=== PATIENT | male | born 1980 | race Caucasian/White ===

== ENCOUNTER 2020-10-09 01:42 | Inpatient (IN) | payer OTHER ==
[~2020-10-09 01:42] MED LIST: BACTRIM DS TAB1 EACH PO; CLINDAMYCIN 15150 MG PO; IBUPROFEN800 MG PO; LIDOCAINE 5% P1 EACH TOP; SEROQUEL 25MG T25 MG PO
[2020-10-09 02:16] LABS: BILIRUBIN 1+ mg/dL (NEGATIVE); BLOOD NEGATIVE Ery/uL (NEGATIVE); CLARITY CLEAR (CLEAR); COLOR YELLOW (YELLOW); GLUCOSE (U) NORMAL (NORMAL); LEUKOCYTES NEGATIVE Leu/uL (NEGATIVE); NITRITE NEGATIVE (NEGATIVE); PROTEIN 1+ mg/dL (NEGATIVE); SPECIFIC GRAVITY >=1.030 (1.001-1.030); UROBILINOGEN 0.2 mg/dL (0.2-1.0); pH 5.5 (5.0-9.0)
[2020-10-09 02:22] LABS: BARBITURATES NEGATIVE (NEGATIVE); ECSTASY (MDMA) POSITIVE (NEGATIVE); MARIJUANA (THC) NEGATIVE (NEGATIVE); METHADONE NEGATIVE (NEGATIVE); OPIATES NEGATIVE (NEGATIVE)
[2020-10-09 02:23] LABS: AMPHETAMINES POSITIVE (NEGATIVE); OXYCODONE NEGATIVE (NEGATIVE)
[2020-10-09 02:29] LABS: AMORPHOUS URATES CRYSTALS TRACE; BACTERIA 1+; MUCOUS TRACE; SPERM PRESENT; URINARY WBC RARE
[2020-10-09 02:54] LABS: BASOPHIL 0.7 % (0-2); EOSINOPHIL 0 % (0-5); HCT 43.8 % (42.0-52.0); HGB 14.6 g/dl (13.2-18.0); LYMPHOCYTE 3.7 % (15-48); MCH 31.6 pg (25.0-31.0); MCHC 33.3 g/dL (32.0-36.0); MCV 94.8 fL (78.0-100.0); MONOCYTE 5.6 % (0-12); MPV 8.5 fL (6.0-9.5); NEUTROPHIL 88.7 % (41-80); NRBC 0; PLT 342 K/uL (150-400); RBC 4.62 M/uL (4.70-6.00); RDW 12.9 % (11.5-14.0); WBC 15.3 K/uL (4.0-10.5)
[2020-10-09 03:07] LABS: ALBUMIN 4.2 g/dL (3.4-5.0); ALKALINE PHOSHATASE 122 U/L (46-116); ALT 30 U/L (16-63); AST 26 U/L (15-37); BILIRUBIN - TOTAL 0.5 mg/dL (0.2-1.0); BUN 24 mg/dL (7-18); BUN/CREAT RATIO (CALC) 19.4 RATIO; CHLORIDE 108 mmol/L (98-107); CO2 (BICARBONATE) 24 mmol/L (21-32); CREATININE 1.24 mg/dL (0.67-1.17); GLOBULIN (CALCULATION) 3.6 g/dL; GLUCOSE 106 mg/dL (74-106); POTASSIUM 3.3 mmol/L (3.5-5.1); TOTAL PROTEIN 7.8 g/dL (6.4-8.2)
[2020-10-09 03:19] LABS: CKMB 8.2 ng/mL (0.0-3.6)
[2020-10-09 03:46] LABS: CORONAVIRUS 2019 SARS-COV-2 NEGATIVE (NEGATIVE); INFLUENZA A NAA NEGATIVE (NEGATIVE)
[2020-10-10 05:48] LABS: BASOPHIL 0.6 % (0-2); EOSINOPHIL 0.2 % (0-5); HCT 37.2 % (42.0-52.0); HGB 12.1 g/dl (13.2-18.0); LYMPHOCYTE 31.3 % (15-48); MCH 31.8 pg (25.0-31.0); MCHC 32.5 g/dL (32.0-36.0); MCV 97.9 fL (78.0-100.0); MONOCYTE 9.9 % (0-12); MPV 8.5 fL (6.0-9.5); NEUTROPHIL 57.5 % (41-80); NRBC 0; PLT 281 K/uL (150-400); RDW 13.3 % (11.5-14.0); WBC 8.8 K/uL (4.0-10.5)
[2020-10-10 06:23] LABS: BUN/CREAT RATIO (CALC) 19.7 RATIO; CREATININE 0.66 mg/dL (0.67-1.17); POTASSIUM 3.5 mmol/L (3.5-5.1)
--- NOTE | 2020-10-10 15:44 | NUR ---
LIVES WITH MOM AND IS INDEPENDENDT WITH CARE. SOCIAL SERVICE FOLLOWING; PT DID NOT HAVE ANY DISCHARGE NEEDS
== END 2020-10-10 16:13 | disposition home or self-care (01) | DRG 917 ==
LOC: FER 01:42 → FMS 05:42
PROVIDERS: Student in an Organized Health Care Education/Training Program; ADMIT Hospitalist
DX: T43.621A Poisoning by amphetamines, accidental (unintentional), initial encounter (principal); J69.0 Pneumonitis due to inhalation of food and vomit; G93.41 Metabolic encephalopathy; N17.9 Acute kidney failure, unspecified; I10 Essential (primary) hypertension; F17.210 Nicotine dependence, cigarettes, uncomplicated; E86.0 Dehydration; Z20.822 Contact with and (suspected) exposure to COVID-19; Z88.0 Allergy status to penicillin
CPT/HCPCS: 36415; 70450; 71045; 71046; 80048; 80053; 80305; 81001; 82553; 83605; 83735; 84484; 85025; 87040; 87077; 87186; 93005; 94010; 94640; 94667; 94668; G0480; J0456; J0692; J1200; J1630; J1650; J2060; J2543; J2930; J3370; J7030; J7050; U0002

== ENCOUNTER 2020-12-21 01:19 | Emergency (ER) | payer OTHER ==
[2020-12-21 01:49] LABS: AMPHETAMINES POSITIVE (NEGATIVE); BARBITURATES NEGATIVE (NEGATIVE); ECSTASY (MDMA) POSITIVE (NEGATIVE); MARIJUANA (THC) NEGATIVE (NEGATIVE); METHADONE NEGATIVE (NEGATIVE); OPIATES NEGATIVE (NEGATIVE); OXYCODONE NEGATIVE (NEGATIVE)
[2020-12-21 01:50] LABS: BILIRUBIN NEGATIVE (NEGATIVE); BLOOD NEGATIVE Ery/uL (NEGATIVE); CLARITY CLEAR (CLEAR); COLOR YELLOW (YELLOW); GLUCOSE (U) NORMAL (NORMAL); LEUKOCYTES NEGATIVE Leu/uL (NEGATIVE); NITRITE NEGATIVE (NEGATIVE); PROTEIN NEGATIVE (NEGATIVE); UROBILINOGEN 0.2 mg/dL (0.2-1.0)
[2020-12-21 02:01] LABS: BASOPHIL 0.8 % (0-2); EOSINOPHIL 0 % (0-5); HCT 37.8 % (42.0-52.0); HGB 12.8 g/dl (13.2-18.0); LYMPHOCYTE 19.6 % (15-48); MCH 31.9 pg (25.0-31.0); MCHC 33.9 g/dL (32.0-36.0); MCV 94.3 fL (78.0-100.0); MONOCYTE 10.5 % (0-12); MPV 8.7 fL (6.0-9.5); NEUTROPHIL 68.6 % (41-80); NRBC 0; PLT 262 K/uL (150-400); RBC 4.01 M/uL (4.70-6.00); RDW 12.9 % (11.5-14.0); WBC 9.7 K/uL (4.0-10.5)
[2020-12-21 02:16] LABS: ALBUMIN 3.9 g/dL (3.4-5.0); BILIRUBIN - TOTAL 0.2 mg/dL (0.2-1.0); BUN/CREAT RATIO (CALC) 17.2 RATIO; CREATININE 0.64 mg/dL (0.67-1.17); GLOBULIN (CALCULATION) 3.2 g/dL; MAGNESIUM 1.5 mg/dL (1.8-2.4); POTASSIUM 3.7 mmol/L (3.5-5.1); TOTAL PROTEIN 7.1 g/dL (6.4-8.2)
== END 2020-12-21 09:05 | disposition home or self-care (01) ==
LOC: FER 01:19
PROVIDERS: Emergency Medicine
DX: F19.10 Other psychoactive substance abuse, uncomplicated (principal); F17.200 Nicotine dependence, unspecified, uncomplicated; Z88.0 Allergy status to penicillin; Z87.820 Personal history of traumatic brain injury; Z20.822 Contact with and (suspected) exposure to COVID-19
CPT/HCPCS: 36415; 80053; 80305; 81003; 83735; 85025; 93005; G0480; J3486; U0002

== ENCOUNTER 2020-12-23 00:32 | Emergency (ER) | payer OTHER | END 2020-12-23 01:03 | LOC: FER 00:32 | DX: F15.10 Other stimulant abuse, uncomplicated (principal); S00.83XA Contusion of other part of head, initial encounter; F17.200 Nicotine dependence, unspecified, uncomplicated; Z88.0 Allergy status to penicillin; X58.XXXA Exposure to other specified factors, initial encounter | CPT/HCPCS: 99284 ==

== ENCOUNTER 2020-12-26 23:26 | Emergency (ER) | payer OTHER ==
[2020-12-26 23:51] LABS: BASOPHIL 0.7 % (0-2); EOSINOPHIL 0.4 % (0-5); HCT 35.9 % (42.0-52.0); HGB 12.1 g/dl (13.2-18.0); LYMPHOCYTE 21.2 % (15-48); MCHC 33.7 g/dL (32.0-36.0); MONOCYTE 10.7 % (0-12); MPV 8.3 fL (6.0-9.5); NEUTROPHIL 66.3 % (41-80); NRBC 0; PLT 395 K/uL (150-400); RBC 3.78 M/uL (4.70-6.00); RDW 13.1 % (11.5-14.0); WBC 9.4 K/uL (4.0-10.5)
[2020-12-27] LABS: ALBUMIN 3.4 g/dL (3.4-5.0); ALKALINE PHOSHATASE 87 U/L (46-116); ALT 30 U/L (16-63); AST 22 U/L (15-37); BILIRUBIN - TOTAL 0.2 mg/dL (0.2-1.0); BUN 16 mg/dL (7-18); BUN/CREAT RATIO (CALC) 23.2 RATIO; CHLORIDE 101 mmol/L (98-107); CO2 (BICARBONATE) 26 mmol/L (21-32); CREATININE 0.69 mg/dL (0.67-1.17); GLOBULIN (CALCULATION) 3.4 g/dL; GLUCOSE 97 mg/dL (74-106); POTASSIUM 3.3 mmol/L (3.5-5.1); TOTAL PROTEIN 6.8 g/dL (6.4-8.2)
[2020-12-27 00:55] LABS: AMPHETAMINES POSITIVE (NEGATIVE); BARBITURATES NEGATIVE (NEGATIVE); ECSTASY (MDMA) NEGATIVE (NEGATIVE); MARIJUANA (THC) NEGATIVE (NEGATIVE); METHADONE NEGATIVE (NEGATIVE); OPIATES NEGATIVE (NEGATIVE); OXYCODONE NEGATIVE (NEGATIVE)
[2020-12-27 01:00] LABS: BILIRUBIN NEGATIVE (NEGATIVE); BLOOD NEGATIVE Ery/uL (NEGATIVE); CLARITY CLEAR (CLEAR); COLOR YELLOW (YELLOW); GLUCOSE (U) NORMAL (NORMAL); LEUKOCYTES NEGATIVE Leu/uL (NEGATIVE); NITRITE NEGATIVE (NEGATIVE); PROTEIN NEGATIVE (NEGATIVE); SPECIFIC GRAVITY 1.015 (1.001-1.030); pH 6.5 (5.0-9.0)
[2020-12-27] MEDS ORDERED: AMOXICILLIN500 MG PO (06:06)
[2020-12-27] MEDS ORDERED: CLEOCIN300 MG PO (06:11)
== END 2020-12-27 06:51 | disposition home or self-care (01) ==
LOC: FER 23:26
PROVIDERS: Emergency Medicine
DX: F10.129 Alcohol abuse with intoxication, unspecified (principal); K02.9 Dental caries, unspecified; F17.210 Nicotine dependence, cigarettes, uncomplicated; Y90.0 Blood alcohol level of less than 20 mg/100 ml
CPT/HCPCS: 36415; 80053; 80305; 81003; 85025; 99285; G0480

== ENCOUNTER 2021-01-05 02:07 | Emergency (ER) | payer OTHER ==
[~2021-01-05 02:07] MED LIST changes: +AMOXICILLIN500 MG PO; +CLEOCIN300 MG PO
[2021-01-05] MEDS ORDERED: CLEOCIN HCL300 MG PO (03:28)
[2021-01-05] MEDS ORDERED: NAPROSYN500 MG PO (03:28)
== END 2021-01-05 03:40 | disposition home or self-care (01) ==
LOC: FER 02:07
DX: K02.9 Dental caries, unspecified (principal)
CPT/HCPCS: 99283

== ENCOUNTER 2021-01-16 05:15 | Emergency (ER) | payer OTHER ==
[~2021-01-16 05:15] MED LIST changes: +CLEOCIN HCL300 MG PO; +NAPROSYN500 MG PO
[2021-01-16 05:34] LABS: BASOPHIL 1.5 % (0-2); EOSINOPHIL 0.8 % (0-5); HCT 37.1 % (42.0-52.0); HGB 12.4 g/dl (13.2-18.0); LYMPHOCYTE 29.2 % (15-48); MCH 32.4 pg (25.0-31.0); MCHC 33.4 g/dL (32.0-36.0); MCV 96.9 fL (78.0-100.0); MONOCYTE 9.9 % (0-12); MPV 8.5 fL (6.0-9.5); NEUTROPHIL 58.3 % (41-80); NRBC 0; PLT 308 K/uL (150-400); RBC 3.83 M/uL (4.70-6.00); RDW 14.3 % (11.5-14.0); WBC 6.6 K/uL (4.0-10.5)
[2021-01-16 06:06] LABS: ACETAMINOPHEN (TYLENOL) < 2.0 ug/mL (10.0-30.0); ALBUMIN 3.9 g/dL (3.4-5.0); ALKALINE PHOSHATASE 90 U/L (46-116); ALT 29 U/L (16-63); AST 20 U/L (15-37); BILIRUBIN - TOTAL 0.3 mg/dL (0.2-1.0); BUN 15 mg/dL (7-18); BUN/CREAT RATIO (CALC) 20.5 RATIO; CHLORIDE 105 mmol/L (98-107); CO2 (BICARBONATE) 28 mmol/L (21-32); CREATININE 0.73 mg/dL (0.67-1.17); GLUCOSE 95 mg/dL (74-106); POTASSIUM 3.3 mmol/L (3.5-5.1); TOTAL PROTEIN 6.9 g/dL (6.4-8.2)
[2021-01-16 07:53] LABS: BILIRUBIN NEGATIVE (NEGATIVE); BLOOD NEGATIVE Ery/uL (NEGATIVE); CLARITY HAZY (CLEAR); COLOR YELLOW (YELLOW); GLUCOSE (U) NORMAL (NORMAL); LEUKOCYTES NEGATIVE Leu/uL (NEGATIVE); NITRITE NEGATIVE (NEGATIVE); PROTEIN NEGATIVE (NEGATIVE); SPECIFIC GRAVITY 1.015 (1.001-1.030); UROBILINOGEN 0.2 mg/dL (0.2-1.0)
[2021-01-16 08:32] LABS: MARIJUANA (THC) NEGATIVE (NEGATIVE)
[2021-01-16 08:33] LABS: AMPHETAMINES POSITIVE (NEGATIVE); BARBITURATES NEGATIVE (NEGATIVE); ECSTASY (MDMA) NEGATIVE (NEGATIVE); METHADONE NEGATIVE (NEGATIVE); OPIATES NEGATIVE (NEGATIVE); OXYCODONE NEGATIVE (NEGATIVE)
== END 2021-01-16 11:05 | disposition home or self-care (01) ==
LOC: FER 05:15
PROVIDERS: Emergency Medicine Emergency Medical Services
DX: F19.122 Other psychoactive substance abuse with intoxication with perceptual disturbances (principal); I10 Essential (primary) hypertension; F17.200 Nicotine dependence, unspecified, uncomplicated; Z88.0 Allergy status to penicillin
CPT/HCPCS: 36415; 70450; 71045; 80053; 80305; 81003; 84439; 84443; 84484; 85025; 93005; G0480; J3411; J7030

== ENCOUNTER 2021-01-26 03:22 | Emergency (ER) | payer OTHER ==
[2021-01-26 03:47] LABS: BASOPHIL 1.1 % (0-2); EOSINOPHIL 0.2 % (0-5); HCT 38.1 % (42.0-52.0); HGB 12.8 g/dl (13.2-18.0); LYMPHOCYTE 12.2 % (15-48); MCH 32.9 pg (25.0-31.0); MCHC 33.6 g/dL (32.0-36.0); MCV 97.9 fL (78.0-100.0); MONOCYTE 9.2 % (0-12); MPV 8.2 fL (6.0-9.5); NRBC 0; PLT 311 K/uL (150-400); RBC 3.89 M/uL (4.70-6.00); RDW 14.4 % (11.5-14.0); WBC 9.3 K/uL (4.0-10.5)
[2021-01-26 04:05] LABS: BILIRUBIN - TOTAL 0.3 mg/dL (0.2-1.0); BUN/CREAT RATIO (CALC) 17.6 RATIO; CREATININE 1.02 mg/dL (0.67-1.17); GLOBULIN (CALCULATION) 3.6 g/dL; POTASSIUM 3.8 mmol/L (3.5-5.1); TOTAL PROTEIN 7.6 g/dL (6.4-8.2)
== END 2021-01-26 10:32 | disposition home or self-care (01) ==
LOC: FER 03:22
PROVIDERS: Emergency Medicine
DX: F19.10 Other psychoactive substance abuse, uncomplicated (principal); F17.200 Nicotine dependence, unspecified, uncomplicated; Z88.0 Allergy status to penicillin
CPT/HCPCS: 36415; 80053; 82550; 85025; 96372; G0480; J2060; J3486

== ENCOUNTER 2021-02-01 01:45 | Emergency (ER) | payer OTHER ==
[2021-02-01 03:00] LABS: BASOPHIL 1.8 % (0-2); EOSINOPHIL 0.1 % (0-5); HCT 39.5 % (42.0-52.0); HGB 13.4 g/dl (13.2-18.0); LYMPHOCYTE 20.2 % (15-48); MCH 32.5 pg (25.0-31.0); MCHC 33.9 g/dL (32.0-36.0); MCV 95.9 fL (78.0-100.0); MONOCYTE 10.7 % (0-12); MPV 8.5 fL (6.0-9.5); NEUTROPHIL 66.1 % (41-80); NRBC 0; PLT 325 K/uL (150-400); RBC 4.12 M/uL (4.70-6.00); WBC 9.1 K/uL (4.0-10.5)
[2021-02-01 03:08] LABS: ALBUMIN 4.2 g/dL (3.4-5.0); ALKALINE PHOSHATASE 94 U/L (46-116); ALT 36 U/L (16-63); AST 29 U/L (15-37); BILIRUBIN - TOTAL 0.2 mg/dL (0.2-1.0); BUN 14 mg/dL (7-18); BUN/CREAT RATIO (CALC) 17.1 RATIO; CHLORIDE 106 mmol/L (98-107); CO2 (BICARBONATE) 26 mmol/L (21-32); CREATININE 0.82 mg/dL (0.67-1.17); GLOBULIN (CALCULATION) 3.5 g/dL; GLUCOSE 94 mg/dL (74-106); TOTAL PROTEIN 7.7 g/dL (6.4-8.2)
[2021-02-01 06:15] LABS: BILIRUBIN NEGATIVE (NEGATIVE); BLOOD NEGATIVE Ery/uL (NEGATIVE); CLARITY CLEAR (CLEAR); COLOR YELLOW (YELLOW); GLUCOSE (U) NORMAL (NORMAL); LEUKOCYTES NEGATIVE Leu/uL (NEGATIVE); NITRITE NEGATIVE (NEGATIVE); PROTEIN NEGATIVE (NEGATIVE); pH 7.5 (5.0-9.0)
[2021-02-01 06:24] LABS: AMPHETAMINES NEGATIVE (NEGATIVE); BARBITURATES NEGATIVE (NEGATIVE); ECSTASY (MDMA) NEGATIVE (NEGATIVE); MARIJUANA (THC) NEGATIVE (NEGATIVE); METHADONE NEGATIVE (NEGATIVE); OPIATES NEGATIVE (NEGATIVE); OXYCODONE NEGATIVE (NEGATIVE)
[2021-02-02] MEDS ORDERED: CLINDAMYCIN 15150 MG PO (06:33)
== END 2021-02-01 08:05 | disposition home or self-care (01) ==
LOC: FER 01:45
PROVIDERS: Emergency Medicine
DX: F10.129 Alcohol abuse with intoxication, unspecified (principal); F15.129 Other stimulant abuse with intoxication, unspecified; K02.9 Dental caries, unspecified; Y90.0 Blood alcohol level of less than 20 mg/100 ml
CPT/HCPCS: 36415; 80053; 80305; 81003; 85025; 99285; G0480; J3410

== ENCOUNTER 2021-02-02 02:32 | Emergency (ER) | payer OTHER ==
[2021-02-02 04:23] LABS: BASOPHIL 1.4 % (0-2); EOSINOPHIL 0.4 % (0-5); HCT 40.7 % (42.0-52.0); HGB 13.9 g/dl (13.2-18.0); LYMPHOCYTE 21.3 % (15-48); MCH 32.7 pg (25.0-31.0); MCHC 34.2 g/dL (32.0-36.0); MCV 95.8 fL (78.0-100.0); MONOCYTE 13.1 % (0-12); MPV 8.6 fL (6.0-9.5); NEUTROPHIL 63.4 % (41-80); NRBC 0; PLT 318 K/uL (150-400); RBC 4.25 M/uL (4.70-6.00); RDW 13.8 % (11.5-14.0); WBC 10.9 K/uL (4.0-10.5)
[2021-02-02 04:32] LABS: BILIRUBIN NEGATIVE (NEGATIVE); BLOOD NEGATIVE Ery/uL (NEGATIVE); CLARITY CLEAR (CLEAR); COLOR YELLOW (YELLOW); GLUCOSE (U) NORMAL (NORMAL); LEUKOCYTES NEGATIVE Leu/uL (NEGATIVE); NITRITE NEGATIVE (NEGATIVE); PROTEIN TRACE (LOW) mg/dL (NEGATIVE); SPECIFIC GRAVITY 1.025 (1.001-1.030); pH 6.5 (5.0-9.0)
[2021-02-02 04:35] LABS: SQUAMOUS EPITHELIAL CELLS RARE; URINARY RBC RARE
[2021-02-02 04:36] LABS: AMPHETAMINES NEGATIVE (NEGATIVE); BARBITURATES NEGATIVE (NEGATIVE); ECSTASY (MDMA) NEGATIVE (NEGATIVE); MARIJUANA (THC) NEGATIVE (NEGATIVE); METHADONE NEGATIVE (NEGATIVE); OPIATES NEGATIVE (NEGATIVE); OXYCODONE NEGATIVE (NEGATIVE)
[2021-02-02 04:40] LABS: ALBUMIN 4.1 g/dL (3.4-5.0); BILIRUBIN - TOTAL 0.5 mg/dL (0.2-1.0); BUN/CREAT RATIO (CALC) 22.1 RATIO; CREATININE 0.86 mg/dL (0.67-1.17); GLOBULIN (CALCULATION) 3.6 g/dL; POTASSIUM 3.7 mmol/L (3.5-5.1); TOTAL PROTEIN 7.7 g/dL (6.4-8.2)
[2021-02-02 04:56] LABS: LACTIC ACID 0.9 mmol/L (0.4-1.9)
[2021-02-02] MEDS ORDERED: CLINDAMYCIN 15150 MG PO (06:33)
== END 2021-02-02 06:55 | disposition home or self-care (01) ==
LOC: FER 02:32
PROVIDERS: Emergency Medicine Emergency Medical Services
DX: F15.129 Other stimulant abuse with intoxication, unspecified (principal); K02.9 Dental caries, unspecified; K04.7 Periapical abscess without sinus; Z87.820 Personal history of traumatic brain injury; Z88.0 Allergy status to penicillin
CPT/HCPCS: 36415; 80053; 80305; 81001; 83605; 85025; 87040; G0480; J3411; J3475; J7030; Q0163

== ENCOUNTER 2021-02-03 06:45 | Emergency (ER) | payer OTHER | END 2021-02-03 07:05 | disposition home or self-care (01) | LOC: FER 06:45 | DX: K02.9 Dental caries, unspecified (principal); F17.200 Nicotine dependence, unspecified, uncomplicated | CPT/HCPCS: 99283 ==

== ENCOUNTER 2021-02-05 23:36 | Emergency (ER) | payer OTHER ==
[2021-02-06] MEDS ORDERED: KEFLEX250 MG PO (05:02)
== END 2021-02-06 05:15 | disposition home or self-care (01) ==
LOC: FER 23:36
DX: K02.9 Dental caries, unspecified (principal); F17.200 Nicotine dependence, unspecified, uncomplicated; Z88.0 Allergy status to penicillin
CPT/HCPCS: 99284

== ENCOUNTER 2021-02-08 02:29 | Emergency (ER) | payer OTHER ==
[~2021-02-08 02:29] MED LIST changes: +KEFLEX250 MG PO
[2021-02-08 03:38] LABS: BASOPHIL 1.6 % (0-2); EOSINOPHIL 1.6 % (0-5); HCT 37.4 % (42.0-52.0); HGB 12.7 g/dl (13.2-18.0); LYMPHOCYTE 31.7 % (15-48); MCH 32.8 pg (25.0-31.0); MCV 96.6 fL (78.0-100.0); MONOCYTE 9.9 % (0-12); MPV 8.4 fL (6.0-9.5); NRBC 0; PLT 304 K/uL (150-400); RBC 3.87 M/uL (4.70-6.00); RDW 13.5 % (11.5-14.0)
[2021-02-08 03:40] LABS: AMPHETAMINES POSITIVE (NEGATIVE); BARBITURATES NEGATIVE (NEGATIVE); BILIRUBIN NEGATIVE (NEGATIVE); BLOOD NEGATIVE Ery/uL (NEGATIVE); CLARITY CLEAR (CLEAR); COLOR YELLOW (YELLOW); ECSTASY (MDMA) NEGATIVE (NEGATIVE); GLUCOSE (U) NORMAL (NORMAL); LEUKOCYTES NEGATIVE Leu/uL (NEGATIVE); MARIJUANA (THC) NEGATIVE (NEGATIVE); METHADONE NEGATIVE (NEGATIVE); NITRITE NEGATIVE (NEGATIVE); OPIATES NEGATIVE (NEGATIVE); OXYCODONE NEGATIVE (NEGATIVE); PROTEIN NEGATIVE (NEGATIVE); UROBILINOGEN 0.2 mg/dL (0.2-1.0)
[2021-02-08 03:51] LABS: ALBUMIN 3.6 g/dL (3.4-5.0); ALKALINE PHOSHATASE 79 U/L (46-116); ALT 28 U/L (16-63); AST 18 U/L (15-37); BILIRUBIN - TOTAL 0.2 mg/dL (0.2-1.0); BUN 10 mg/dL (7-18); BUN/CREAT RATIO (CALC) 15.4 RATIO; CHLORIDE 107 mmol/L (98-107); CO2 (BICARBONATE) 26 mmol/L (21-32); CREATININE 0.65 mg/dL (0.67-1.17); GLOBULIN (CALCULATION) 3.2 g/dL; GLUCOSE 90 mg/dL (74-106); POTASSIUM 3.4 mmol/L (3.5-5.1); TOTAL PROTEIN 6.8 g/dL (6.4-8.2)
[2021-02-08] MEDS ORDERED: CLINDAMYCIN 15150 MG PO (06:34)
== END 2021-02-08 11:05 | disposition home or self-care (01) ==
LOC: FER 02:29
PROVIDERS: Emergency Medicine Emergency Medical Services
DX: F19.10 Other psychoactive substance abuse, uncomplicated (principal); K02.9 Dental caries, unspecified; I10 Essential (primary) hypertension; F17.200 Nicotine dependence, unspecified, uncomplicated; Z86.59 Personal history of other mental and behavioral disorders; Z87.820 Personal history of traumatic brain injury; Z88.0 Allergy status to penicillin
CPT/HCPCS: 36415; 80053; 80305; 81003; 85025; G0480; J1885; J7030

== ENCOUNTER 2021-02-11 23:10 | Emergency (ER) | payer OTHER ==
[2021-02-12] MEDS ORDERED: CLEOCIN HCL300 MG PO (00:21)
[2021-02-12] MEDS ORDERED: NORCO 5-325 TA1 EACH PO (00:22)
== END 2021-02-12 01:05 | disposition home or self-care (01) ==
LOC: FER 23:10
DX: K02.9 Dental caries, unspecified (principal); F17.210 Nicotine dependence, cigarettes, uncomplicated
CPT/HCPCS: 99282

== ENCOUNTER 2021-03-24 02:09 | Emergency (ER) | payer OTHER ==
[~2021-03-24 02:09] MED LIST changes: +NORCO 5-325 TA1 EACH PO
[2021-03-24 02:57] LABS: BASOPHIL 1.2 % (0-2); EOSINOPHIL 0 % (0-5); HCT 40.4 % (42.0-52.0); HGB 13.8 g/dl (13.2-18.0); MCH 33.2 pg (25.0-31.0); MCHC 34.2 g/dL (32.0-36.0); MCV 97.1 fL (78.0-100.0); MONOCYTE 6.8 % (0-12); MPV 8.5 fL (6.0-9.5); NRBC 0; PLT 289 K/uL (150-400); RBC 4.16 M/uL (4.70-6.00); RDW 13.5 % (11.5-14.0); WBC 9.5 K/uL (4.0-10.5)
[2021-03-24 03:02] LABS: NEUTROPHIL 61.7 % (41-80)
[2021-03-24 03:17] LABS: ALBUMIN 4.3 g/dL (3.4-5.0); BILIRUBIN - TOTAL 0.5 mg/dL (0.2-1.0); BUN/CREAT RATIO (CALC) 19.3 RATIO; CREATININE 1.09 mg/dL (0.67-1.17); GLOBULIN (CALCULATION) 3.8 g/dL; POTASSIUM 4.3 mmol/L (3.5-5.1); TOTAL PROTEIN 8.1 g/dL (6.4-8.2)
[2021-03-24 10:25] LABS: BILIRUBIN NEGATIVE (NEGATIVE); BLOOD NEGATIVE Ery/uL (NEGATIVE); CLARITY CLEAR (CLEAR); COLOR YELLOW (YELLOW); GLUCOSE (U) NORMAL (NORMAL); LEUKOCYTES NEGATIVE Leu/uL (NEGATIVE); NITRITE NEGATIVE (NEGATIVE); PROTEIN NEGATIVE (NEGATIVE); SPECIFIC GRAVITY 1.025 (1.001-1.030); UROBILINOGEN 0.2 mg/dL (0.2-1.0)
[2021-03-24 10:30] LABS: ECSTASY (MDMA) POSITIVE (NEGATIVE); MARIJUANA (THC) NEGATIVE (NEGATIVE)
[2021-03-24 10:31] LABS: AMPHETAMINES POSITIVE (NEGATIVE); BARBITURATES NEGATIVE (NEGATIVE); METHADONE NEGATIVE (NEGATIVE); OPIATES NEGATIVE (NEGATIVE); OXYCODONE NEGATIVE (NEGATIVE)
== END 2021-03-24 10:47 | disposition home or self-care (01) ==
LOC: FER 02:09
PROVIDERS: Emergency Medicine Emergency Medical Services
DX: F19.121 Other psychoactive substance abuse with intoxication delirium (principal); K02.9 Dental caries, unspecified; I10 Essential (primary) hypertension; F17.200 Nicotine dependence, unspecified, uncomplicated; Z88.0 Allergy status to penicillin; Z87.820 Personal history of traumatic brain injury
CPT/HCPCS: 36415; 70450; 80053; 80305; 81003; 82550; 84484; 85025; 96372; G0480; J1200; J2060; J3486; J7030

== ENCOUNTER 2021-04-27 02:05 | Emergency (ER) | payer OTHER | END 2021-04-27 07:56 | disposition home or self-care (01) | LOC: FER 02:05 | DX: F10.129 Alcohol abuse with intoxication, unspecified (principal); F17.200 Nicotine dependence, unspecified, uncomplicated; F19.90 Other psychoactive substance use, unspecified, uncomplicated ==

== ENCOUNTER 2021-05-14 01:41 | Day surgery (SDCO) | payer OTHER ==
[~2021-05-14] VITALS: Ht 177.8 cm; Wt 81.6 kg
[2021-05-14 03:16] LABS: BASOPHIL 0.7 % (0-2); EOSINOPHIL 0 % (0-5); HCT 39.9 % (42.0-52.0); HGB 13.6 g/dl (13.2-18.0); LYMPHOCYTE 4.5 % (15-48); MCH 32.4 pg (25.0-31.0); MCHC 34.1 g/dL (32.0-36.0); MONOCYTE 5.7 % (0-12); MPV 8.8 fL (6.0-9.5); NEUTROPHIL 87.6 % (41-80); NRBC 0; PLT 259 K/uL (150-400); RDW 12.5 % (11.5-14.0); WBC 16.3 K/uL (4.0-10.5)
[2021-05-14 03:29] LABS: BARBITURATES NEGATIVE (NEGATIVE); ECSTASY (MDMA) NEGATIVE (NEGATIVE); MARIJUANA (THC) POSITIVE (NEGATIVE); METHADONE NEGATIVE (NEGATIVE); OPIATES NEGATIVE (NEGATIVE)
[2021-05-14 03:30] LABS: AMPHETAMINES POSITIVE (NEGATIVE); OXYCODONE NEGATIVE (NEGATIVE)
[2021-05-14 03:46] LABS: ALBUMIN 4.3 g/dL (3.4-5.0); ALKALINE PHOSHATASE 85 U/L (46-116); ALT 39 U/L (16-63); AST 44 U/L (15-37); BILIRUBIN - TOTAL 0.9 mg/dL (0.2-1.0); BUN 21 mg/dL (7-18); BUN/CREAT RATIO (CALC) 17.8 RATIO; CHLORIDE 115 mmol/L (98-107); CO2 (BICARBONATE) 24 mmol/L (21-32); CPK 763 U/L (39-308); CREATININE 1.18 mg/dL (0.67-1.17); GLOBULIN (CALCULATION) 3.5 g/dL; GLUCOSE 72 mg/dL (74-106); LDH 390 U/L (85-227); MAGNESIUM 2.4 mg/dL (1.8-2.4); POTASSIUM 3.3 mmol/L (3.5-5.1); TOTAL PROTEIN 7.8 g/dL (6.4-8.2)
[2021-05-14 03:57] LABS: LACTIC ACID 1.7 mmol/L (0.4-1.9)
[2021-05-14 10:05] LABS: CREATININE 0.82 mg/dL (0.67-1.17); MAGNESIUM 2.9 mg/dL (1.8-2.4); POTASSIUM 3.2 mmol/L (3.5-5.1)
[2021-05-14 16:35] LABS: CREATININE 0.8 mg/dL (0.67-1.17); POTASSIUM 3.5 mmol/L (3.5-5.1)
[2021-05-15 14:37] LABS: BASOPHIL 0.9 % (0-2); HCT 42.6 % (42.0-52.0); LYMPHOCYTE 30.3 % (15-48); MCH 31.8 pg (25.0-31.0); MCHC 32.9 g/dL (32.0-36.0); MCV 96.8 fL (78.0-100.0); MONOCYTE 7.9 % (0-12); NEUTROPHIL 59.6 % (41-80); NRBC 0; PLT 236 K/uL (150-400); RDW 12.8 % (11.5-14.0); WBC 10.3 K/uL (4.0-10.5)
[2021-05-15 14:53] LABS: BUN/CREAT RATIO (CALC) 18.1 RATIO; CREATININE 0.83 mg/dL (0.67-1.17); POTASSIUM 3.8 mmol/L (3.5-5.1)
[2021-05-15 14:54] LABS: MAGNESIUM 2.1 mg/dL (1.8-2.4)
[2021-05-16 06:13] LABS: BASOPHIL 0.6 % (0-2); EOSINOPHIL 1.5 % (0-5); HCT 41.3 % (42.0-52.0); HGB 13.6 g/dl (13.2-18.0); LYMPHOCYTE 39.1 % (15-48); MCHC 32.9 g/dL (32.0-36.0); MCV 97.2 fL (78.0-100.0); MONOCYTE 9.6 % (0-12); MPV 9.2 fL (6.0-9.5); NEUTROPHIL 48.8 % (41-80); NRBC 0; PLT 235 K/uL (150-400); RBC 4.25 M/uL (4.70-6.00); RDW 12.8 % (11.5-14.0); WBC 8.5 K/uL (4.0-10.5)
[2021-05-16 06:45] LABS: BUN/CREAT RATIO (CALC) 14.1 RATIO; CREATININE 0.64 mg/dL (0.67-1.17); POTASSIUM 3.6 mmol/L (3.5-5.1)
[2021-05-17 09:09] LABS: HBSAG SCREEN Negative (Negative); HEP A AB, IGM Negative (Negative); HEP B CORE AB, IGM Negative (Negative); HEP C VIRUS AB <0.1 (0.0-0.9)
== END 2021-05-16 15:21 | disposition home or self-care (01) ==
LOC: FER 01:41 → FMS 11:13
PROVIDERS: Emergency Medicine; Family Medicine; Internal Medicine; ADMIT Allergy & Immunology Allergy
DX: G92 Toxic encephalopathy (principal); E87.0 Hyperosmolality and hypernatremia; Z88.0 Allergy status to penicillin; I10 Essential (primary) hypertension; Z96.641 Presence of right artificial hip joint; F17.210 Nicotine dependence, cigarettes, uncomplicated; T43.625A Adverse effect of amphetamines, initial encounter; F15.10 Other stimulant abuse, uncomplicated; Z20.822 Contact with and (suspected) exposure to COVID-19
CPT/HCPCS: 36415; 70450; 71045; 80048; 80053; 80074; 80305; 82550; 82728; 83605; 83615; 83735; 84145; 84443; 85025; 96372; 97161; G0378; G0480; J0696; J2060; J3411; J3480; J3486; J7030; J7060; J7070; U0002

== ENCOUNTER 2021-05-18 22:52 | Emergency (ER) | payer OTHER | END 2021-05-19 06:38 | disposition home or self-care (01) | LOC: FER 22:52 | DX: R41.82 Altered mental status, unspecified (principal); F17.200 Nicotine dependence, unspecified, uncomplicated; Z88.0 Allergy status to penicillin | CPT/HCPCS: 99284 ==

== ENCOUNTER 2021-05-21 00:40 | Emergency (ER) | payer OTHER ==
[2021-05-21 04:09] LABS: BASOPHIL 1.1 % (0-2); EOSINOPHIL 1.5 % (0-5); HCT 37.4 % (42.0-52.0); HGB 12.7 g/dl (13.2-18.0); LYMPHOCYTE 42.6 % (15-48); MCH 32.3 pg (25.0-31.0); MCV 95.2 fL (78.0-100.0); MONOCYTE 10.3 % (0-12); MPV 8.7 fL (6.0-9.5); NEUTROPHIL 44.2 % (41-80); NRBC 0; PLT 267 K/uL (150-400); RBC 3.93 M/uL (4.70-6.00); RDW 12.5 % (11.5-14.0); WBC 7.9 K/uL (4.0-10.5)
[2021-05-21 04:24] LABS: ALBUMIN 3.4 g/dL (3.4-5.0); BILIRUBIN - TOTAL 0.4 mg/dL (0.2-1.0); C-REACTIVE PROTEIN 0.8 mg/dL (<=0.90); CREATININE 0.62 mg/dL (0.67-1.17); GLOBULIN (CALCULATION) 3.4 g/dL; POTASSIUM 3.4 mmol/L (3.5-5.1); TOTAL PROTEIN 6.8 g/dL (6.4-8.2)
== END 2021-05-21 05:24 | disposition home or self-care (01) ==
LOC: FER 00:40
PROVIDERS: Emergency Medicine Emergency Medical Services
DX: R51.9 Headache, unspecified (principal); K02.9 Dental caries, unspecified; F19.10 Other psychoactive substance abuse, uncomplicated; Z88.0 Allergy status to penicillin; F17.210 Nicotine dependence, cigarettes, uncomplicated
CPT/HCPCS: 36415; 80053; 84484; 85025; 86140; 87040; J1885

== ENCOUNTER 2021-05-23 17:51 | Emergency (ER) | payer OTHER ==
[2021-05-23 18:59] LABS: BASOPHIL 0.9 % (0-2); EOSINOPHIL 0.3 % (0-5); HCT 36.8 % (42.0-52.0); HGB 12.4 g/dl (13.2-18.0); LYMPHOCYTE 18.8 % (15-48); MCH 32.4 pg (25.0-31.0); MCHC 33.7 g/dL (32.0-36.0); MCV 96.1 fL (78.0-100.0); MONOCYTE 8.1 % (0-12); MPV 8.6 fL (6.0-9.5); NEUTROPHIL 71.6 % (41-80); NRBC 0; PLT 325 K/uL (150-400); RBC 3.83 M/uL (4.70-6.00); WBC 6.9 K/uL (4.0-10.5)
[2021-05-23 19:20] LABS: ALBUMIN 3.6 g/dL (3.4-5.0); ALKALINE PHOSHATASE 73 U/L (46-116); ALT 65 U/L (16-63); AST 31 U/L (15-37); BILIRUBIN - TOTAL 0.3 mg/dL (0.2-1.0); BUN 11 mg/dL (7-18); BUN/CREAT RATIO (CALC) 13.1 RATIO; CHLORIDE 105 mmol/L (98-107); CO2 (BICARBONATE) 24 mmol/L (21-32); CPK 198 U/L (39-308); CREATININE 0.84 mg/dL (0.67-1.17); GLOBULIN (CALCULATION) 3.4 g/dL; GLUCOSE 119 mg/dL (74-106); MAGNESIUM 1.8 mg/dL (1.8-2.4); POTASSIUM 3.4 mmol/L (3.5-5.1)
[2021-05-23 19:22] LABS: C-REACTIVE PROTEIN < 0.20 mg/dL (<=0.90)
[2021-05-23 20:39] LABS: BILIRUBIN NEGATIVE (NEGATIVE); BLOOD NEGATIVE Ery/uL (NEGATIVE); CLARITY CLEAR (CLEAR); COLOR YELLOW (YELLOW); GLUCOSE (U) NORMAL (NORMAL); LEUKOCYTES NEGATIVE Leu/uL (NEGATIVE); NITRITE NEGATIVE (NEGATIVE); PROTEIN NEGATIVE (NEGATIVE); SPECIFIC GRAVITY 1.015 (1.001-1.030); UROBILINOGEN 0.2 mg/dL (0.2-1.0)
[2021-05-23 20:46] LABS: ECSTASY (MDMA) NEGATIVE (NEGATIVE); MARIJUANA (THC) POSITIVE (NEGATIVE)
[2021-05-23 20:47] LABS: AMPHETAMINES POSITIVE (NEGATIVE); BARBITURATES NEGATIVE (NEGATIVE); METHADONE NEGATIVE (NEGATIVE); OPIATES NEGATIVE (NEGATIVE); OXYCODONE NEGATIVE (NEGATIVE)
== END 2021-05-23 21:57 | disposition home or self-care (01) ==
LOC: FER 17:51
PROVIDERS: Emergency Medicine
DX: F15.129 Other stimulant abuse with intoxication, unspecified (principal); R41.82 Altered mental status, unspecified; F17.210 Nicotine dependence, cigarettes, uncomplicated; Z88.0 Allergy status to penicillin; Z87.820 Personal history of traumatic brain injury
CPT/HCPCS: 36415; 36600; 80053; 80305; 81003; 82550; 82803; 83735; 84484; 85025; 86140; 93005; 96372; G0480; J2060; J3486; J7030

== ENCOUNTER 2021-05-25 05:43 | Emergency (ER) | payer OTHER ==
[2021-05-25 06:15] LABS: BASOPHIL 1.6 % (0-2); EOSINOPHIL 0.6 % (0-5); HCT 38.1 % (42.0-52.0); HGB 12.6 g/dl (13.2-18.0); LYMPHOCYTE 24.4 % (15-48); MCH 31.8 pg (25.0-31.0); MCHC 33.1 g/dL (32.0-36.0); MCV 96.2 fL (78.0-100.0); MONOCYTE 7.6 % (0-12); MPV 8.3 fL (6.0-9.5); NEUTROPHIL 65.7 % (41-80); NRBC 0; PLT 334 K/uL (150-400); RBC 3.96 M/uL (4.70-6.00); RDW 12.8 % (11.5-14.0); WBC 6.7 K/uL (4.0-10.5)
[2021-05-25 06:25] LABS: MARIJUANA (THC) POSITIVE (NEGATIVE)
[2021-05-25 06:26] LABS: AMPHETAMINES POSITIVE (NEGATIVE); BARBITURATES NEGATIVE (NEGATIVE); ECSTASY (MDMA) NEGATIVE (NEGATIVE); METHADONE NEGATIVE (NEGATIVE); OPIATES NEGATIVE (NEGATIVE); OXYCODONE NEGATIVE (NEGATIVE)
[2021-05-25 06:51] LABS: ACETAMINOPHEN (TYLENOL) < 2.0 ug/mL (10.0-30.0); ALBUMIN 3.6 g/dL (3.4-5.0); ALKALINE PHOSHATASE 72 U/L (46-116); ALT 59 U/L (16-63); AST 31 U/L (15-37); BILIRUBIN - TOTAL 0.3 mg/dL (0.2-1.0); BUN 11 mg/dL (7-18); BUN/CREAT RATIO (CALC) 15.3 RATIO; CHLORIDE 105 mmol/L (98-107); CO2 (BICARBONATE) 24 mmol/L (21-32); CREATININE 0.72 mg/dL (0.67-1.17); GLOBULIN (CALCULATION) 3.4 g/dL; GLUCOSE 77 mg/dL (74-106); POTASSIUM 3.9 mmol/L (3.5-5.1)
== END 2021-05-25 09:24 | disposition left against medical advice (07) ==
LOC: FER 05:43
PROVIDERS: Emergency Medicine Emergency Medical Services
DX: F15.129 Other stimulant abuse with intoxication, unspecified (principal); F12.129 Cannabis abuse with intoxication, unspecified; I10 Essential (primary) hypertension; Z88.0 Allergy status to penicillin; Z20.822 Contact with and (suspected) exposure to COVID-19
CPT/HCPCS: 36415; 80053; 80305; 85025; 99285; G0480; J1885; U0002

== ENCOUNTER 2021-06-15 01:44 | Emergency (ER) | payer OTHER | END 2021-06-15 07:00 | disposition home or self-care (01) | LOC: FER 01:44 | DX: F10.129 Alcohol abuse with intoxication, unspecified (principal); F15.129 Other stimulant abuse with intoxication, unspecified; R41.82 Altered mental status, unspecified; F17.200 Nicotine dependence, unspecified, uncomplicated; Z88.0 Allergy status to penicillin ==

== ENCOUNTER 2021-06-17 03:43 | Emergency (ER) | payer OTHER ==
[2021-06-17 05:13] LABS: BASOPHIL 1.4 % (0-2); EOSINOPHIL 1.8 % (0-5); HCT 40.6 % (42.0-52.0); HGB 13.6 g/dl (13.2-18.0); LYMPHOCYTE 33.4 % (15-48); MCHC 33.5 g/dL (32.0-36.0); MCV 95.5 fL (78.0-100.0); MONOCYTE 10.3 % (0-12); MPV 8.9 fL (6.0-9.5); NEUTROPHIL 52.9 % (41-80); NRBC 0; PLT 276 K/uL (150-400); RBC 4.25 M/uL (4.70-6.00); RDW 12.8 % (11.5-14.0); WBC 5.1 K/uL (4.0-10.5)
[2021-06-17 06:10] LABS: ALBUMIN 3.9 g/dL (3.4-5.0); ALKALINE PHOSHATASE 81 U/L (46-116); ALT 32 U/L (16-63); AST 27 U/L (15-37); BILIRUBIN - TOTAL 0.4 mg/dL (0.2-1.0); BUN 15 mg/dL (7-18); BUN/CREAT RATIO (CALC) 19.5 RATIO; CHLORIDE 108 mmol/L (98-107); CO2 (BICARBONATE) 23 mmol/L (21-32); CREATININE 0.77 mg/dL (0.67-1.17); GLOBULIN (CALCULATION) 3.4 g/dL; GLUCOSE 89 mg/dL (74-106); TOTAL PROTEIN 7.3 g/dL (6.4-8.2)
[2021-06-17] MEDS ORDERED: TYLENOL500 MG PO (06:50)
== END 2021-06-17 07:03 | disposition home or self-care (01) ==
LOC: FER 03:43
PROVIDERS: Emergency Medicine Emergency Medical Services
DX: F15.10 Other stimulant abuse, uncomplicated (principal); K02.9 Dental caries, unspecified; F17.210 Nicotine dependence, cigarettes, uncomplicated; Z88.2 Allergy status to sulfonamides
CPT/HCPCS: 36415; 80053; 85025; 96372; 99285; G0480; J1885

== ENCOUNTER 2021-06-17 16:07 | Emergency (ER) | payer OTHER ==
[~2021-06-17 16:07] MED LIST changes: +TYLENOL500 MG PO
[2021-06-17 17:11] LABS: BILIRUBIN NEGATIVE (NEGATIVE); BLOOD NEGATIVE Ery/uL (NEGATIVE); CLARITY CLEAR (CLEAR); COLOR YELLOW (YELLOW); GLUCOSE (U) NORMAL (NORMAL); LEUKOCYTES NEGATIVE Leu/uL (NEGATIVE); NITRITE NEGATIVE (NEGATIVE); PROTEIN 1+ mg/dL (NEGATIVE); SPECIFIC GRAVITY >=1.030 (1.001-1.030)
[2021-06-17 17:15] LABS: EOSINOPHIL 0.5 % (0-5); HCT 41.3 % (42.0-52.0); HGB 13.9 g/dl (13.2-18.0); LYMPHOCYTE 20.3 % (15-48); MCH 32.6 pg (25.0-31.0); MCHC 33.7 g/dL (32.0-36.0); MCV 96.7 fL (78.0-100.0); MONOCYTE 8.2 % (0-12); MPV 8.7 fL (6.0-9.5); NEUTROPHIL 69.8 % (41-80); NRBC 0; PLT 271 K/uL (150-400); RBC 4.27 M/uL (4.70-6.00); RDW 13.1 % (11.5-14.0); WBC 5.8 K/uL (4.0-10.5)
[2021-06-17 17:25] LABS: AMPHETAMINES POSITIVE (NEGATIVE); BARBITURATES POSITIVE (NEGATIVE); ECSTASY (MDMA) POSITIVE (NEGATIVE); MARIJUANA (THC) POSITIVE (NEGATIVE); METHADONE NEGATIVE (NEGATIVE); OPIATES NEGATIVE (NEGATIVE)
[2021-06-17 17:26] LABS: OXYCODONE NEGATIVE (NEGATIVE)
[2021-06-17 17:31] LABS: URINARY WBC RARE
[2021-06-17 17:32] LABS: AMORPHOUS URATES CRYSTALS TRACE; BACTERIA 1+; MUCOUS TRACE; SPERM PRESENT
[2021-06-17 17:48] LABS: ALBUMIN 4.1 g/dL (3.4-5.0); ALKALINE PHOSHATASE 83 U/L (46-116); ALT 32 U/L (16-63); AST 25 U/L (15-37); BILIRUBIN - TOTAL 0.4 mg/dL (0.2-1.0); BUN 23 mg/dL (7-18); BUN/CREAT RATIO (CALC) 22.8 RATIO; CHLORIDE 110 mmol/L (98-107); CO2 (BICARBONATE) 24 mmol/L (21-32); CREATININE 1.01 mg/dL (0.67-1.17); GLOBULIN (CALCULATION) 3.4 g/dL; GLUCOSE 108 mg/dL (74-106); POTASSIUM 3.9 mmol/L (3.5-5.1); TOTAL PROTEIN 7.5 g/dL (6.4-8.2)
[2021-06-17 17:54] LABS: ACETAMINOPHEN (TYLENOL) < 2.0 ug/mL (10.0-30.0)
== END 2021-06-17 19:29 | disposition home or self-care (01) ==
LOC: FER 16:07
PROVIDERS: Emergency Medicine
DX: F15.129 Other stimulant abuse with intoxication, unspecified (principal); F12.129 Cannabis abuse with intoxication, unspecified; F17.200 Nicotine dependence, unspecified, uncomplicated; Z88.0 Allergy status to penicillin
CPT/HCPCS: 36415; 80053; 80305; 81001; 85025; 96372; G0480; J3486

== ENCOUNTER 2021-06-24 01:28 | Emergency (ER) | payer OTHER ==
[2021-06-24 01:57] LABS: HCT 36.9 % (42.0-52.0); HGB 12.4 g/dl (13.2-18.0); MCH 32.2 pg (25.0-31.0); MCHC 33.6 g/dL (32.0-36.0); MCV 95.8 fL (78.0-100.0); MPV 8.6 fL (6.0-9.5); RBC 3.85 M/uL (4.70-6.00); WBC 7.2 K/uL (4.0-10.5)
[2021-06-24 02:29] LABS: ALBUMIN 3.6 g/dL (3.4-5.0); BILIRUBIN - TOTAL 0.2 mg/dL (0.2-1.0); BUN/CREAT RATIO (CALC) 14.6 RATIO; CREATININE 0.82 mg/dL (0.67-1.17); GLOBULIN (CALCULATION) 2.9 g/dL; POTASSIUM 3.3 mmol/L (3.5-5.1); TOTAL PROTEIN 6.5 g/dL (6.4-8.2)
== END 2021-06-24 03:26 | disposition home or self-care (01) ==
LOC: FER 01:28
PROVIDERS: Emergency Medicine
DX: R07.89 Other chest pain (principal); F17.200 Nicotine dependence, unspecified, uncomplicated; F15.90 Other stimulant use, unspecified, uncomplicated; Z88.0 Allergy status to penicillin
CPT/HCPCS: 36415; 71045; 80053; 84484; 93005; G0480

== ENCOUNTER 2021-06-25 23:13 | Emergency (ER) | payer OTHER ==
[2021-06-26] MEDS ORDERED: CLEOCIN300 MG PO (01:57)
== END 2021-06-26 02:08 | disposition home or self-care (01) ==
LOC: FER 23:13
DX: S20.459A Superficial foreign body of unspecified back wall of thorax, initial encounter (principal); F17.200 Nicotine dependence, unspecified, uncomplicated; X95.9XXA Assault by unspecified firearm discharge, initial encounter
CPT/HCPCS: 71046

== ENCOUNTER 2021-06-28 01:48 | Emergency (ER) | payer OTHER | END 2021-06-28 07:10 | disposition home or self-care (01) | LOC: FER 01:48 | DX: F15.90 Other stimulant use, unspecified, uncomplicated (principal); F17.200 Nicotine dependence, unspecified, uncomplicated | CPT/HCPCS: 99284 ==

== ENCOUNTER 2021-07-06 00:44 | Emergency (ER) | payer OTHER ==
[2021-07-06 01:14] LABS: BASOPHIL 1.6 % (0-2); EOSINOPHIL 1.6 % (0-5); HGB 13.1 g/dl (13.2-18.0); LYMPHOCYTE 35.4 % (15-48); MCH 32.1 pg (25.0-31.0); MCHC 33.6 g/dL (32.0-36.0); MCV 95.6 fL (78.0-100.0); MPV 8.4 fL (6.0-9.5); NEUTROPHIL 48.3 % (41-80); NRBC 0; PLT 293 K/uL (150-400); RBC 4.08 M/uL (4.70-6.00); RDW 13.7 % (11.5-14.0); WBC 7.5 K/uL (4.0-10.5)
[2021-07-06 01:36] LABS: ALBUMIN 3.9 g/dL (3.4-5.0); ALKALINE PHOSHATASE 71 U/L (46-116); ALT 35 U/L (16-63); AST 24 U/L (15-37); BILIRUBIN - TOTAL 0.2 mg/dL (0.2-1.0); BUN 19 mg/dL (7-18); BUN/CREAT RATIO (CALC) 23.2 RATIO; C-REACTIVE PROTEIN < 0.20 mg/dL (<=0.90); CHLORIDE 106 mmol/L (98-107); CO2 (BICARBONATE) 25 mmol/L (21-32); CREATININE 0.82 mg/dL (0.67-1.17); GLOBULIN (CALCULATION) 2.9 g/dL; GLUCOSE 93 mg/dL (74-106); LIPASE 96 U/L (73-393); POTASSIUM 3.8 mmol/L (3.5-5.1); TOTAL PROTEIN 6.8 g/dL (6.4-8.2)
[2021-07-06] MEDS ORDERED: TYLENOL500 MG PO (03:28)
== END 2021-07-06 03:45 | disposition home or self-care (01) ==
LOC: FER 00:44
PROVIDERS: Emergency Medicine Emergency Medical Services
DX: R07.9 Chest pain, unspecified (principal); R51.9 Headache, unspecified; F17.200 Nicotine dependence, unspecified, uncomplicated; Z88.0 Allergy status to penicillin
CPT/HCPCS: 36415; 71045; 71275; 80053; 83690; 84145; 84484; 85025; 85379; 86140; 87040; 93005; G0480; J1885; J2930; J3411; J3475; J7030; Q9967

== ENCOUNTER 2021-07-11 00:55 | Emergency (ER) | payer OTHER | END 2021-07-11 07:07 | disposition home or self-care (01) | LOC: FER 00:55 | DX: F10.129 Alcohol abuse with intoxication, unspecified (principal); F17.200 Nicotine dependence, unspecified, uncomplicated; F15.10 Other stimulant abuse, uncomplicated; Z88.0 Allergy status to penicillin ==

== ENCOUNTER 2021-08-03 19:40 | Emergency (ER) | payer OTHER ==
[2021-08-03 20:45] LABS: BASOPHIL 0.6 % (0-2); EOSINOPHIL 0.4 % (0-5); HCT 39.1 % (42.0-52.0); HGB 13.1 g/dl (13.2-18.0); MCHC 33.5 g/dL (32.0-36.0); MCV 95.6 fL (78.0-100.0); MPV 8.5 fL (6.0-9.5); NEUTROPHIL 69.7 % (41-80); NRBC 0; PLT 313 K/uL (150-400); RBC 4.09 M/uL (4.70-6.00); RDW 13.1 % (11.5-14.0); WBC 11.3 K/uL (4.0-10.5)
[2021-08-03 21:01] LABS: BUN 9 mg/dL (7-18); BUN/CREAT RATIO (CALC) 11.5 RATIO; CHLORIDE 102 mmol/L (98-107); CO2 (BICARBONATE) 23 mmol/L (21-32); CREATININE 0.78 mg/dL (0.67-1.17); GLUCOSE 108 mg/dL (74-106); POTASSIUM 3.5 mmol/L (3.5-5.1)
[2021-08-03] MEDS ORDERED: CLEOCIN300 MG PO (22:57)
== END 2021-08-03 23:20 | disposition home or self-care (01) ==
LOC: FER 19:40
PROVIDERS: Emergency Medicine Emergency Medical Services
DX: F15.129 Other stimulant abuse with intoxication, unspecified (principal); Z20.822 Contact with and (suspected) exposure to COVID-19
CPT/HCPCS: 36415; 80048; 85025; 96372; 99284; G0480; J1885; U0002

== ENCOUNTER 2022-04-21 01:07 | Emergency (ER) | payer OTHER | END 2022-04-21 09:33 | disposition home or self-care (01) | LOC: FER 01:07 | DX: F19.90 Other psychoactive substance use, unspecified, uncomplicated (principal) | CPT/HCPCS: 96372; J1630; J2060; J3486 ==

== ENCOUNTER 2022-04-30 22:07 | Emergency (ER) | payer OTHER | END 2022-04-30 23:00 | disposition left against medical advice (07) | LOC: FER 22:07 | DX: Z53.21 Procedure and treatment not carried out due to patient leaving prior to being seen by health care provider (principal) ==

== ENCOUNTER 2022-05-02 03:47 | Emergency (ER) | payer OTHER ==
[2022-05-02 04:36] LABS: CORONAVIRUS 2019 SARS-COV-2 NEGATIVE (NEGATIVE); INFLUENZA A NAA NEGATIVE (NEGATIVE)
[2022-05-02 04:41] LABS: BASOPHIL 1.3 % (0-2); EOSINOPHIL 0.8 % (0-5); HCT 38.3 % (42.0-52.0); HGB 13.1 g/dl (13.2-18.0); LYMPHOCYTE 19.5 % (15-48); MCH 32.3 pg (25.0-31.0); MCHC 34.2 g/dL (32.0-36.0); MCV 94.6 fL (78.0-100.0); MONOCYTE 11.1 % (0-12); MPV 8.6 fL (6.0-9.5); NRBC 0; PLT 312 K/uL (150-400); RBC 4.05 M/uL (4.70-6.00); RDW 13.2 % (11.5-14.0); WBC 8.9 K/uL (4.0-10.5)
[2022-05-02 04:56] LABS: BUN/CREAT RATIO (CALC) 14.7 RATIO; CREATININE 0.95 mg/dL (0.67-1.17); POTASSIUM 3.7 mmol/L (3.5-5.1)
[2022-05-02] MEDS ORDERED: VIBRAMYCIN100 MG PO (06:07)
[2022-05-02] MEDS ORDERED: MEDROL 4MG DOSEP4 MG PO (06:07)
== END 2022-05-02 07:02 | disposition home or self-care (01) ==
LOC: FER 03:47
PROVIDERS: Internal Medicine
DX: J44.1 Chronic obstructive pulmonary disease with (acute) exacerbation (principal); F15.10 Other stimulant abuse, uncomplicated; F17.210 Nicotine dependence, cigarettes, uncomplicated; Z20.822 Contact with and (suspected) exposure to COVID-19; Z88.0 Allergy status to penicillin
CPT/HCPCS: 36415; 71045; 80048; 83880; 84484; 85025; 93005; 96372; J2060; J7030; U0002

== ENCOUNTER 2022-05-03 04:03 | Emergency (ER) | payer OTHER ==
[~2022-05-03 04:03] MED LIST changes: +MEDROL 4MG DOSEP4 MG PO; +VIBRAMYCIN100 MG PO
== END 2022-05-03 09:50 | disposition home or self-care (01) ==
LOC: FER 04:03
DX: F19.90 Other psychoactive substance use, unspecified, uncomplicated (principal); F17.200 Nicotine dependence, unspecified, uncomplicated; Z88.0 Allergy status to penicillin

== ENCOUNTER 2022-05-05 11:48 | Emergency (ER) | payer OTHER ==
[2022-05-05] MEDS ORDERED: NORCO 5-325 TA1 EACH PO (13:59)
== END 2022-05-05 14:15 | disposition home or self-care (01) ==
LOC: FER 11:48
DX: G43.909 Migraine, unspecified, not intractable, without status migrainosus (principal); S60.412A Abrasion of right middle finger, initial encounter; W22.8XXA Striking against or struck by other objects, initial encounter; Y93.89 Activity, other specified
CPT/HCPCS: 73140

== ENCOUNTER 2022-05-06 01:31 | Emergency (ER) | payer OTHER | END 2022-05-06 08:59 | disposition home or self-care (01) | LOC: FER 01:31 | DX: F15.90 Other stimulant use, unspecified, uncomplicated (principal); F17.200 Nicotine dependence, unspecified, uncomplicated | CPT/HCPCS: J3486 ==

== ENCOUNTER 2022-05-07 19:47 | Emergency (ER) | payer OTHER | END 2022-05-08 06:47 | disposition home or self-care (01) | LOC: FER 19:47 | DX: R51.9 Headache, unspecified (principal); F15.90 Other stimulant use, unspecified, uncomplicated; F17.200 Nicotine dependence, unspecified, uncomplicated; Z88.0 Allergy status to penicillin | CPT/HCPCS: 70450 ==